=== PATIENT | female | born 1975 | race Caucasian/White ===

== ENCOUNTER 2024-05-14 14:02 | Emergency (ER) | payer SELFPAY ==
[~2024-05-14] VITALS: Ht 162.6 cm; Wt 58.9 kg
[2024-05-14 14:06] VITALS: BP 140/83; TEMP 36.8; O2SAT 100
[2024-05-14 14:10] VITALS: PULSE 77; RESP 16; O2SAT 100
[2024-05-14] MEDS: KETOROLAC 15MG/ML VIAL IM ONE (19:06)
== END 2024-05-14 21:18 | disposition home or self-care (01) ==
LOC: ER 14:02
DX: S82.832A Other fracture of upper and lower end of left fibula, initial encounter for closed fracture (principal); X58.XXXA Exposure to other specified factors, initial encounter; Y93.89 Activity, other specified; Y92.89 Other specified places as the place of occurrence of the external cause; Y99.8 Other external cause status
CPT/HCPCS: 99283; 29515; 73610; 96372; J1885

== ENCOUNTER 2024-09-20 12:45 | Emergency (ER) | payer MEDICAID, OTHER ==
[~2024-09-20] VITALS: Ht 165.1 cm; Wt 64.0 kg
[2024-09-20 12:48] VITALS: O2SAT 100
[2024-09-20] MEDS ORDERED: ACET-2708 MT (15:12)
[2024-09-20] MEDS: KETOROLAC 30MG/ML VIAL IM ONE (15:37)
[2024-09-20 15:41] VITALS: BP 143/78; PULSE 63; RESP 18; TEMP 36.7; O2SAT 100
== END 2024-09-20 15:41 | disposition home or self-care (01) ==
LOC: ER 12:45
DX: M79.671 Pain in right foot (principal); Z98.890 Other specified postprocedural states
CPT/HCPCS: 81025; 73630; 96372; 99283; J1885; Z7610